=== PATIENT | male | born 1975 | race Caucasian/White ===

== ENCOUNTER 2018-03-10 15:21 | Emergency (ER) | payer SELFPAY ==
[~2018-03-10] VITALS: Ht 175.3 cm; Wt 101.6 kg
[~2018-03-10 15:21] MED LIST: BYSTOLIC10 MG PO; CIPRO500 MG PO; DITROPAN XL5 MG PO; NORVASC5 MG PO; TYLENOL WITH C1 EACH PO
[2018-03-10] MEDS ORDERED: SODIUM CHLORIDE 0.9% 1000ML 1,000 ML IV STA (15:23)
--- OUTSIDE RECORDS SUMMARY | 2018-03-10 15:24 | XMS REPORT | Clinical Summary ---
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 Active Problems Problem Noted Date Flank pain 01/21/2017 Social History Date Tobacco Use Types Packs/Day Years Used Never Smoker Smokeless Tobacco: Never Used Tobacco Cessation: Counseling Given: No Alcohol Use Drinks/Week oz/Week Comments Yes Sex Assigned at Date Recorded Not on file Industry Job Start Date Occupation Not on file Not on file Not on file Travel End Travel History Travel Start No recent travel history available. Last Filed Vital Signs Not on file Plan of Treatment Health Maintenance Due Date Last Done Comments INFLUENZA VACCINE 09/19/2017 Results Not on fileafter 03/09/2017 Insurance Payer Benefit Subscriber ID Type Phone Address Plan / Group BCBS BCBS xxxxxxxxxxxxxxx PPO CHOICE PPO/TOSHA [employer]RAHAM PPO (Home) [place] [address]
--- OUTSIDE RECORDS SUMMARY | 2018-03-10 15:24 | XMS REPORT ---
Author [facility] Address Unknown Phone Unavailable Care Team Providers Care Electrician Assistant Name Role Phone Khushi MACE Unavailable Unavailable GUERO RENEE Unavailable Unavailable Payers Payer Name Policy Type Policy Number Effective Date Expiration Date Problems This patient has no known problems. Allergies, Adverse Reactions, Alerts Allergy Name Allergy Type Status Severity Reaction(s) Onset Date Inactive Date Treating Clinician Comments No Known Allergies DA Active U 2012-02-28 00:00:00 Medications This patient has no known medications. Results Test Description Test Time Test Comments Text Results Atomic Results Result Comments CT ABDOMEN/PELVIS [place] [address] Patient Name: JENISE HERNADEZ MR #: [id number] : 1975 Age/Sex: 41/M Req #: [id number] Adm Physician: Ordered by: SHERI MACE MD Report #: [id number] Location: ER Room/Bed: Procedure: [id number] CT/CT ABDOMEN/PELVIS WO Exam Date: 12/22/16 Exam Time: 1701 REPORT STATUS: Signed PROCEDURE: CT ABDOMEN AND PELVIS WITHOUT CONTRAST COMPARISON: CT abdomen/pelvis 11/17/16. INDICATIONS: RIGHT SIDE FLANK PAIN FOR 3 DAYS TECHNIQUE: Axial CT images through the abdomen and pelvis were obtained without IV or oral contrast. Coronal and sagittal reformations were created. FINDINGS: Lung bases: Noncalcified nodule in the posterior left lower lobe measures 5 mm and is stable. Posterior right lower lobe soft tissue nodule measures 4 mm and is stable. An anterior pericardial effusion measures 8 mm (previously, 5 mm). Liver: Normal attenuation without mass. Spleen: Normal size and attenuation without mass. Biliary: The gallbladder is present and normal in morphology. No biliary ductal dilatation. No evidence of gallstone. Pancreas: Normal attenuation without mass. No d uctal dilatation. Adrenal Glands: No evidence of mass. Kidneys: Right kidney: Stent in the right renal collecting system extends into the bladder. Hydronephrosis has improved. A stone in the lower pole measures 10 mm. Previously, it was in the renal pelvis at the UPJ. No calculus along the course of the stent. No cortical mass. Left kidney: No renal calculus, cortical mass, or perinephric inflammation. No collecting system dilatation. Vasculature: The aorta and IVC are normal in diameter. GI: The stomach, small bowel, and large bowel are normal in diameter with normal wall thickness. The appendix is normal. Peritoneum/Retroperitoneum: No free fluid or fluid collection. Bladder: No mural thickening or intraluminal calculi. Reproductive organs: Normal. Musculoskeletal: No focal osseous lesions. CONCLUSION: 1. 10 mm calculus is now in the lower pole of the right kidney. Right ureteral stent is in appropriate position with resolution of hydronephrosis. 2. No evidence of calculus in the left kidney, ureter, or bladder. 3. No bowel obstruction or inflammation. Normal appendix. 4. Small but enlarging pericardial effusion. 5. Stable pulmonary nodules. Recommend annual surveillance with low dose CT of the chest to confirm stability based on risk factors for malignancy. Dictated by: Basilia Hamilton M.D. on 12/22/2016 at 17:43 Electronically approved by: Basilia Hamilton M.D. on 12/22/2016 at 17:43 Dictated By: BASILIA HAMILTON MD 42 Transcribed By: SANDI on 12/22/161742 COPY TO: SHERI MACE MD ABDOMEN-1VIEW (KUB) [place] [address] Patient Name: JENISE HERNADEZ MR #: [id number] : 1975 Age/Sex: 41/M Req #: [id number] Adm Physician: GUERO RENEE MD Ordered by: RADHA HAN MD Report #: [id number] [facility]: [facility] Room/Bed: [facility] Procedure: [id number] DX/ABDOMEN-1VIEW (KUB) Exam Date: 11/17/16 Exam Time: 1424 REPORT STATUS: Signed PROCEDURE: X-RAY ABDOMEN - KUB COMPARISON: CT abdomen pelvis 11/17/2016. INDICATIONS: KIDNEY STONE FINDINGS: There is a non-obstructed bowel-gas pattern. There are no acute osseous abnormalities. The lung bases are clear. 1.0 cm stone in the right UPJ junction is unchanged. CONCLUSION: 1.0 cm stone in the right UPJ junction is unchanged. Dictated by: Elvira Wilkins M.D. on 11/17/2016 at 14:52 Electronically approved by: Elvira Wilkins M.D. on 11/17/2016 at 14:52 Dictated By: ELVIRA WILKINS MD 51 Transcribed By: SANDI on 11/17/161451 COPY TO: RADHA HAN MD CT ABDOMEN/PELVIS WO [address], [place] [address] Patient Name: JENISE EHRNADEZ MR #: [id number] : 1975 Age/Sex: 41/M [facility] #: [id number] Req #: [id number] Adm Physician: Ordered by: CARRIE FLETCHER MD Report #: [id number] Location: ER Room/Bed: Procedure: [id number] CT/CT ABDOMEN/PELVIS WO Exam Date: 11/17/16 Exam Time: 0040 REPORT STATUS: Signed EXAM: CT Abdomen and Pelvis WITHOUT contrast INDICATION: Right flank pain COMPARISON: None. TECHNIQUE: Abdomen and pelvis were scanned utilizing a multidetector helical scanner from the lung base to the pubic symphysis without administration of IV contrast. Absence of intravenous contrast decreases sensitivity for detection of focal lesions and vascular pathology. Coronal and sagittal reformations were obtained. Stone protocol is performed. IV CONTRAST: None. ORAL CONTRAST: None RADIATION DOSE: Total DLP: 539.94 mGy*cm Estimated effective dose: (DLP x 0.015 x size factor) mSv COMPLICATIONS: None FINDINGS: LINES and TUBES: None. LOWER THORAX: Unremarkable HEPATOBILIARY: No focal hepatic lesions. No biliary ductal dilation. GALLBLADDER: No radio-opaque stones or sludge. No wall thickening. SPLEEN: No splenomegaly. PANCREAS: No focal masses or ductal dilatation. ADRENALS: No adrenal nodules KIDNEYS/URETERS: Mild/moderate right hydronephrosis. No cystic or solid mass lesions. 1 cm stone in the right UPJ best seen on series 401, image 61 and series 3, image 73 GI TRACT: No abnormal distention, wall thickening, or evidence of bowel obstruction. There are diverticula within the colon without evidence of diverticulitis. Appendix is normal. PELVIC ORGANS/BLADDER: Unremarkable. LYMPH NODES: No lymphadenopathy. VESSELS: Unremarkable. PERITONEUM / RETROPERITONEUM: No free air or fluid. BONES: Unremarkable. SOFT TISSUES: Unremarkable. IMPRESSION: 1. Obstructive right ureteropelvic junction stone measuring 1 cm in maximum dimension. 2. Moderate right hydronephrosis. Signed by: Dr. Mayank Blackburn M.D. on 11/17/2016 1:43 AM Dictated By: MAYANK BREAUX MD 2 Transcribed By: PHUC on 11/17/16142 COPY TO: CARRIE FLETCHER MD
[2018-03-10] MEDS ORDERED: DIATRIZOATE MEGL/DIATRIZOA SOD 30 ML BTL PO ONE (15:30)
[2018-03-10 15:44] LABS: BASOPHILS # (AUTO) 0.1 (0.0-0.1); BASOPHILS % 0.7 % (0.0-1.0); EOSINOPHILS # (AUTO) 0.1 (0.0-0.4); EOSINOPHILS % 1.2 % (0.0-6.0); HEMATOCRIT 46.4 % (38.2-49.6); HEMOGLOBIN 16.3 g/dL (14.0-18.0); LYMPHOCYTES % 26.6 % (18.0-39.1); MEAN CORPUSCULAR HGB CONC 35.1 g/dL (31-35); MEAN CORPUSCULAR VOLUME 88.2 fL (81-99); MONOCYTES # (AUTO) 0.5 (0.2-0.8); MONOCYTES % 6.3 % (4.4-11.3); NEUTROPHILS % 64.9 % (38.7-80.0); PLATELET COUNT 257 x10e3/uL (140-360); RED BLOOD COUNT 5.26 x10e6/uL (4.3-5.7); RED CELL DISTRIBUTION WIDTH 12.9 % (11.7-14.4)
[2018-03-10 15:59] LABS: ALANINE AMINOTRANSFERASE 30 IU/L (0-55); ALBUMIN/GLOBULIN RATIO 1.2 (0.8-2.0); ALKALINE PHOSPHATASE 119 IU/L (40-150); ANION GAP 15.9 mmol/L (8-16); BLOOD UREA NITROGEN 20 mg/dL (7-26); BUN/CREATININE RATIO 18 (6-25); CALCIUM 8.8 mg/dL (8.4-10.2); CARBON DIOXIDE 20 mmol/L (22-29); CHLORIDE 103 mmol/L (98-107); CREATININE, SERUM 1.09 mg/dL (0.72-1.25); EST GLOMERULAR FILTRATION RATE > 60 ML/MIN (60-); GLUCOSE 150 mg/dL (74-118); LIPASE 20 U/L (8-78); POTASSIUM 3.9 mmol/L (3.5-5.1); SODIUM 135 mmol/L (136-145)
[2018-03-10] MEDS ORDERED: ONDANSETRON HCL INJ 2 MG/ML VIAL IV ONE (16:00)
[2018-03-10] MEDS ORDERED: MORPHINE SULFATE INJ 4 MG/ML INJ 1ML IV ONE ×2 (16:00→18:30)
--- NOTE | 2018-03-10 17:35 | Diagnostic Imaging Report ---
EXAM: CT of the abdomen and pelvis WITH contrast HISTORY: Pain, r/o hernia sbo divertculitis appy COMPARISON: CT of the abdomen and pelvis December 22, 2016.. TECHNIQUE: The abdomen and pelvis were scanned utilizing a multidetector helical scanner. Coronal and sagittal reformats are provided. PROTOCOL: Routine IV CONTRAST: 100 cc of Isovue-370. ORAL CONTRAST: Dilute Gastrografin RADIATION DOSE: Total DLP: 622.02 mGy*cm Estimated effective dose: (DLP x 0.015 x size factor) Dose modulation, iterative reconstruction, and/or weight based adjustment of the mA/kV was utilized to reduce the radiation dose to as low as reasonably achievable. COMPLICATIONS: None FINDINGS: LINES and TUBES: None. LOWER THORAX: Unremarkable HEPATOBILIARY: No focal hepatic lesions. No biliary ductal dilation. GALLBLADDER: No radio-opaque stones or sludge. No wall thickening. SPLEEN: No splenomegaly. PANCREAS: No focal masses or ductal dilatation. ADRENALS: No adrenal nodules KIDNEYS/URETERS: Resolved hydronephrosis. No cystic or solid mass lesions. A 2 mm nonobstructing stone at the interpolar region of the right kidney. The large stone near the inferior pole is no longer present and there is been interval removal of the right ureteral stent. GI TRACT: No abnormal distention, wall thickening, or evidence of bowel obstruction. There are diverticula within the colon without evidence of diverticulitis. The appendix remains normal. Radiopaque contrast within the distal esophagus. PELVIC ORGANS/BLADDER: The urinary bladder is partially decompressed. LYMPH NODES: No lymphadenopathy. VESSELS: Unremarkable. PERITONEUM / RETROPERITONEUM: No free air or fluid. BONES: Unremarkable. SOFT TISSUES: A small fat-containing ventral midline upper abdominal hernia (series 2 image 41 and sagittal image 75), increased focal fat stranding in comparison to December 2016. Stable appearing small fat-containing umbilical hernia. IMPRESSION: 1. No acute intra-abdominal nor intrapelvic abnormality. 2. No acute appendicitis or acute diverticulitis. 3. Small nonobstructing 2 mm right renal stone. 4. A small ventral midline upper abdominal fat-containing hernia with adjacent inflammatory changes which may reflect mechanical irritation or a component of vascular compromise. Correlate with physical exam if the pain localizes to this region. 5. Stable fat-containing small umbilical hernia. Signed by: Khushi Preston.Jamaal., M.M.M. on 03/10/2018 5:32 PM
[2018-03-10] MEDS ORDERED: SODIUM CHLORIDE 0.9% 50ML 50 ML ONE (18:31)
[2018-03-10] MEDS ORDERED: IOPAMIDOL 370 MG/ML 200 ML INFUS..BTL INJ ONE (18:31)
[2018-03-10 18:51] VITALS: BP 140/88
[2018-03-10 19:02] LABS: BILIRUBIN,URINE NEGATIVE (NEGATIVE); CLARITY,URINE CLEAR (CLEAR); COLOR,URINE YELLOW (YELLOW); KETONES,URINE NEGATIVE (NEGATIVE); LEUKOCYTE ESTERASE ,URINE NEGATIVE (NEGATIVE); NITRITE,URINE NEGATIVE (NEGATIVE); PROTEIN,URINE DIPSTICK NEGATIVE (NEGATIVE); URINE UROBILINOGEN 0.2 mg/dL (0.2 - 1)
[2018-03-10 19:03] LABS: BACTERIA,URINE FEW /HPF; EPITHELIAL CELLS,URINE FEW /LPF
== END 2018-03-10 19:05 | disposition home or self-care (01) ==
LOC: ER 15:21
DX: R10.33 Periumbilical pain (principal); R11.0 Nausea; K43.9 Ventral hernia without obstruction or gangrene; I10 Essential (primary) hypertension
CPT/HCPCS: 36415; 74177; 80053; 81001; 83690; 85025; 87086; 99283; J2270; J2405; J7030; Q9967

== ENCOUNTER → 2023-09-21 | Day surgery (SDC) | payer OTHER ==
[2023-09-17 15:20] LABS: BASOPHILS # (AUTO) 0.1 (0.0-0.1); BASOPHILS % 0.9 % (0.0-1.0); EOSINOPHILS # (AUTO) 0.1 (0.0-0.4); EOSINOPHILS % 1.2 % (0.0-6.0); HEMATOCRIT 48.7 % (38.2-49.6); HEMOGLOBIN 16.6 g/dL (14.0-18.0); LYMPHOCYTES # (AUTO) 2.3 (1.0-3.2); MEAN CORPUSCULAR HEMOGLOBIN 30.6 pg (28-32); MEAN CORPUSCULAR HGB CONC 34.1 g/dL (31-35); MEAN CORPUSCULAR VOLUME 89.9 fL (81-99); MONOCYTES # (AUTO) 0.7 (0.2-0.8); MONOCYTES % 7.6 % (4.4-11.3); NEUTROPHILS # (AUTO) 5.8 (2.1-6.9); NEUTROPHILS % 64.1 % (38.7-80.0); PLATELET COUNT 234 x10e3/uL (140-360); RED BLOOD COUNT 5.42 x10e6/uL (4.3-5.7); RED CELL DISTRIBUTION WIDTH 12.2 % (11.7-14.4); WHITE BLOOD COUNT 8.99 x10e3/uL (4.8-10.8)
[~2023-09-21] MED LIST changes: +ASPIRIN81 MG PO; +ATORVASTATIN CA40 MG PO; +EFFIENT10 MG PO; +HYOSCYAMINE SULFATE 0.5 MG/ML INJ ONE; +PROPOFOL IV EMULSION 10 MG/ML 20 ML VIAL ONE; +PROPOFOL IV EMULSION 50 ML IV ONE; +TOPROL XL25 MG PO
[2023-09-21] MEDS: LACTATED RINGER'S 1,000 ML ONE (12:10)
[2023-09-21] MEDS: METOPROLOL TARTRATE INJ 1 MG/ML VIAL ONE (12:21)
[2023-09-21 15:40] VITALS: BP 121/89; PULSE 89; RESP 16; TEMP 97.4; O2SAT 95
== END | disposition home or self-care (01) ==
LOC: OR 11:23
PROVIDERS: ATTEND Internal Medicine Gastroenterology
DX: K62.5 Hemorrhage of anus and rectum (principal); D12.3 Benign neoplasm of transverse colon; D12.4 Benign neoplasm of descending colon; K57.30 Diverticulosis of large intestine without perforation or abscess without bleeding; K64.8 Other hemorrhoids; Z71.3 Dietary counseling and surveillance; I25.10 Atherosclerotic heart disease of native coronary artery without angina pectoris; I10 Essential (primary) hypertension; Z71.89 Other specified counseling; E78.5 Hyperlipidemia, unspecified; N20.0 Calculus of kidney; F17.220 Nicotine dependence, chewing tobacco, uncomplicated; Z71.6 Tobacco abuse counseling; Z01.810 Encounter for preprocedural cardiovascular examination; Z01.812 Encounter for preprocedural laboratory examination; Z79.82 Long term (current) use of aspirin; Z79.899 Other long term (current) drug therapy; Z68.35 Body mass index [BMI] 35.0-35.9, adult; Z95.5 Presence of coronary angioplasty implant and graft
CPT/HCPCS: 36415; 45380; 45385; 85025; 93005; J1980; J2704 ×2; J7121; 45384

== ENCOUNTER 2023-11-16 01:51 | Observation (INO) | payer OTHER ==
[~2023-11-16] VITALS: Ht 172.7 cm; Wt 104.3 kg
[2023-11-16] VITALS (8 sets, daily range): BP systolic 134–172; BP diastolic 92–115; PULSE 73–86; RESP 18–20; TEMP 97.6–98.4; O2SAT 100
[~2023-11-16 01:51] MED LIST changes: -HYOSCYAMINE SULFATE 0.5 MG/ML INJ ONE; -PROPOFOL IV EMULSION 10 MG/ML 20 ML VIAL ONE; -PROPOFOL IV EMULSION 50 ML IV ONE
[2023-11-16] MEDS: KETOROLAC TROMETHAMINE 30 MG/ML VIAL IV STA (02:10)
[2023-11-16] MEDS: SODIUM CHLORIDE 0.9% 1000ML 1,000 ML IV STA (02:10)
[2023-11-16] MEDS: ONDANSETRON HCL INJ 2MG/ML 2ML 2 MG/ML VIAL IV STA (02:10)
[2023-11-16 02:22] LABS: BASOPHILS % 0.6 % (0.0-1.0); CLARITY,URINE TURBID (CLEAR); COLOR,URINE BROWN (YELLOW); EOSINOPHILS # (AUTO) 0.1 (0.0-0.4); EOSINOPHILS % 1.2 % (0.0-6.0); GLUCOSE, URINE NEGATIVE (NEGATIVE); HEMATOCRIT 39.9 % (38.2-49.6); HEMOGLOBIN 13.4 g/dL (14.0-18.0); KETONES,URINE NEGATIVE (NEGATIVE); LEUKOCYTE ESTERASE ,URINE TRACE (NEGATIVE); LYMPHOCYTES # (AUTO) 1.9 (1.0-3.2); LYMPHOCYTES % 28.6 % (18.0-39.1); MEAN CORPUSCULAR HEMOGLOBIN 30.3 pg (28-32); MEAN CORPUSCULAR HGB CONC 33.6 g/dL (31-35); MEAN CORPUSCULAR VOLUME 90.3 fL (81-99); MONOCYTES # (AUTO) 0.5 (0.2-0.8); MONOCYTES % 7.6 % (4.4-11.3); NEUTROPHILS % 61.2 % (38.7-80.0); NITRITE,URINE NEGATIVE (NEGATIVE); PH,URINE 6 (5 - 7); PLATELET COUNT 181 x10e3/uL (140-360); PROTEIN,URINE DIPSTICK 2+ (NEGATIVE); RED BLOOD COUNT 4.42 x10e6/uL (4.3-5.7); RED CELL DISTRIBUTION WIDTH 12.7 % (11.7-14.4); URINE UROBILINOGEN 0.2 mg/dL (0.2 - 1); WHITE BLOOD COUNT 6.47 x10e3/uL (4.8-10.8)
[2023-11-16 02:23] LABS: BILIRUBIN,URINE SMALL (NEGATIVE)
[2023-11-16 02:36] LABS: ALBUMIN 3.5 g/dL (3.5-5.0); ALBUMIN/GLOBULIN RATIO 1.2 (0.8-2.0); ANION GAP 11.7 mmol/L (8-16); BILIRUBIN,TOTAL 0.5 mg/dL (0.2-1.2); CALCIUM 8.4 mg/dL (8.4-10.2); CREATININE, SERUM 1.53 mg/dL (0.72-1.25); POTASSIUM 3.7 mmol/L (3.5-5.1); TOTAL PROTEIN 6.4 g/dL (6.5-8.1)
[2023-11-16 02:53] LABS: BACTERIA,URINE MANY /HPF; EPITHELIAL CELLS,URINE FEW /LPF; RBC,URINE >50 /HPF (0-5)
[2023-11-16] MEDS: SODIUM CHLORIDE 0.9% 1000ML 1,000 ML IV SCH (03:47)
[2023-11-16] MEDS: Morphine 4mg INJECTION 4 MG/ML INJ IV PRN (06:09)
[2023-11-16] MEDS: ONDANSETRON HCL INJ 2MG/ML 2ML 2 MG/ML VIAL IV PRN (06:09)
[2023-11-16] MEDS: HYDROMORPHONE 1MG/1ML INJ IV ONE (11:39)
[2023-11-16] MEDS ORDERED: IOPAMIDOL 610MG/1ML 300 MG/ML VIAL IV ONE (11:48)
[2023-11-16] MEDS ORDERED: FENTANYL CITRATE/PF 100MCG/2 ML INJ ONE (14:09)
[2023-11-16] MEDS ORDERED: MIDAZOLAM HCL 2 MG/2 ML VIAL ONE (14:09)
[2023-11-16] MEDS ORDERED: PROPOFOL IV EMULSION 10 MG/ML 20 ML VIAL ONE (16:49)
[2023-11-16] MEDS ORDERED: ONDANSETRON HCL INJ 2MG/ML 2ML 2 MG/ML VIAL ONE (16:49)
[2023-11-16] MEDS ORDERED: PHENYLEPHRINE HCL 1% 10 MG/ML VIAL ONE (16:49)
[2023-11-16] MEDS ORDERED: SEVOFLURANE INHAL SOLN 250 ML PEN BTL ONE (16:49)
[2023-11-16] MEDS ORDERED: LIDOCAINE HCL 2% LOCAL INJ 5 ML SDV VIAL INJ ONE (16:49)
[2023-11-16] MEDS ORDERED: ACETAMINOPHEN 1000 MG/100 ML IV ONE (16:49)
[2023-11-16] MEDS ORDERED: DEXMEDETOMIDINE HCL 200 MCG/2 ML VIAL ONE (16:49)
[2023-11-16] MEDS ORDERED: DEXAMETHASONE SOD PHOS INJ 4 MG/ML SDV ONE (16:49)
[2023-11-16] MEDS: ACETAMINOPHEN/CODEINE 300MG - 30MG TAB PO PRN (17:40)
[2023-11-16] MEDS: METOPROLOL SUCCINATE 25 MG TAB XL PO SCH (17:40)
[2023-11-16] MEDS: ATORVASTATIN 40 MG TAB PO SCH (21:38)
[2023-11-17] VITALS: BP 147/97; PULSE 77; RESP 18; TEMP 97.6; O2SAT 97
[2023-11-17 04:00] VITALS: BP 134/83; PULSE 63; RESP 18; TEMP 96.8; O2SAT 98
[2023-11-17 06:06] LABS: BASOPHILS % 0.3 % (0.0-1.0); HEMATOCRIT 37.6 % (38.2-49.6); HEMOGLOBIN 12.4 g/dL (14.0-18.0); LYMPHOCYTES % 15.1 % (18.0-39.1); MEAN CORPUSCULAR HEMOGLOBIN 29.8 pg (28-32); MEAN CORPUSCULAR VOLUME 90.4 fL (81-99); MONOCYTES # (AUTO) 0.4 (0.2-0.8); MONOCYTES % 5.4 % (4.4-11.3); NEUTROPHILS # (AUTO) 5.1 (2.1-6.9); NEUTROPHILS % 78.9 % (38.7-80.0); PLATELET COUNT 191 x10e3/uL (140-360); RED BLOOD COUNT 4.16 x10e6/uL (4.3-5.7); RED CELL DISTRIBUTION WIDTH 12.3 % (11.7-14.4); WHITE BLOOD COUNT 6.47 x10e3/uL (4.8-10.8)
[2023-11-17 06:43] LABS: ALBUMIN 3.1 g/dL (3.5-5.0); ANION GAP 12.2 mmol/L (8-16); BILIRUBIN,TOTAL 0.4 mg/dL (0.2-1.2); CALCIUM 8.7 mg/dL (8.4-10.2); CREATININE, SERUM 1.19 mg/dL (0.72-1.25); POTASSIUM 4.2 mmol/L (3.5-5.1); TOTAL PROTEIN 6.3 g/dL (6.5-8.1)
[2023-11-17 08:00] VITALS: BP 168/100; PULSE 77; RESP 18; TEMP 97.7; O2SAT 98
[2023-11-17] MEDS: ASPIRIN 81 MG CHEW TAB PO SCH (08:28)
[2023-11-17] MEDS: SOLIFENACIN SUCCINATE 5 MG TAB PO SCH (08:28)
[2023-11-17] MEDS: PHENAZOPYRIDINE HCL 100 MG TAB PO PRN (08:33)
[2023-11-17] MEDS ORDERED: METOPROLOL SUCCINATE 25 MG TAB XL PO SCH (09:00)
[2023-11-17 12:00] VITALS: BP 147/88; PULSE 68; RESP 18; TEMP 98; O2SAT 98
[2023-11-17] MEDS: BISACODYL 10 MG SUPP PR STA (12:44)
[2023-11-17 16:00] VITALS: BP 145/78; PULSE 66; RESP 18; TEMP 98.2; O2SAT 98
[2023-11-20 08:15] LABS: CALCIUM 8.3 mg/dL (8.7-10.2)
== END 2023-11-17 16:33 | disposition home or self-care (01) ==
LOC: ER 01:56 → ERHOLD 03:15 → PACU V 13:29 → MED/SURG3 13:50
PROVIDERS: ADMIT Internal Medicine; ATTEND Internal Medicine
DX: N13.2 Hydronephrosis with renal and ureteral calculous obstruction (principal); N17.9 Acute kidney failure, unspecified; I10 Essential (primary) hypertension; I25.10 Atherosclerotic heart disease of native coronary artery without angina pectoris; E78.5 Hyperlipidemia, unspecified; N40.0 Benign prostatic hyperplasia without lower urinary tract symptoms; I31.39 Other pericardial effusion (noninflammatory); Z79.82 Long term (current) use of aspirin; Z79.899 Other long term (current) drug therapy; Z68.35 Body mass index [BMI] 35.0-35.9, adult; Z95.5 Presence of coronary angioplasty implant and graft
CPT/HCPCS: 36415 ×2; 52332; 74176; 74420; 80053 ×2; 81001; 83690; 83970; 84550; 85025 ×2; 99284; C1758; C2617; G0378 ×2; J0131; J0696 ×2; J1100; J1170; J1885; J2001; J2250; J2270; J2371; J2405; J2704; J3010; J7030 ×2; Q9967

== ENCOUNTER 2023-11-28 09:51 | Inpatient (IN) | payer OTHER ==
[~2023-11-28] VITALS: Ht 172.7 cm; Wt 104.3 kg
[2023-11-28 09:59] VITALS: TEMP 98.3
[2023-11-28 10:30] LABS: BASOPHILS # (AUTO) 0.1 (0.0-0.1); BASOPHILS % 0.7 % (0.0-1.0); EOSINOPHILS # (AUTO) 0.1 (0.0-0.4); EOSINOPHILS % 1.6 % (0.0-6.0); HEMATOCRIT 44.6 % (38.2-49.6); HEMOGLOBIN 14.9 g/dL (14.0-18.0); LYMPHOCYTES # (AUTO) 2.5 (1.0-3.2); LYMPHOCYTES % 29.8 % (18.0-39.1); MEAN CORPUSCULAR HEMOGLOBIN 30.3 pg (28-32); MEAN CORPUSCULAR HGB CONC 33.4 g/dL (31-35); MEAN CORPUSCULAR VOLUME 90.8 fL (81-99); MONOCYTES # (AUTO) 0.8 (0.2-0.8); MONOCYTES % 8.8 % (4.4-11.3); NEUTROPHILS % 58.6 % (38.7-80.0); PLATELET COUNT 232 x10e3/uL (140-360); RED BLOOD COUNT 4.91 x10e6/uL (4.3-5.7); RED CELL DISTRIBUTION WIDTH 12.8 % (11.7-14.4); WHITE BLOOD COUNT 8.49 x10e3/uL (4.8-10.8)
[2023-11-28] MEDS: KETOROLAC TROMETHAMINE 30 MG/ML VIAL IV STA (10:34)
[2023-11-28] MEDS: SODIUM CHLORIDE 0.9% 1000ML 1,000 ML IV SCH ×2 (10:37→16:19)
[2023-11-28 10:45] LABS: CLARITY,URINE CLOUDY (CLEAR); COLOR,URINE YELLOW (YELLOW)
[2023-11-28 10:46] LABS: BILIRUBIN,URINE SMALL (NEGATIVE); GLUCOSE, URINE NEGATIVE (NEGATIVE); KETONES,URINE TRACE (NEGATIVE); LEUKOCYTE ESTERASE ,URINE TRACE (NEGATIVE); NITRITE,URINE NEGATIVE (NEGATIVE); PH,URINE 5.5 (5 - 7); PROTEIN,URINE DIPSTICK >=300 (NEGATIVE); URINE UROBILINOGEN 1 mg/dL (0.2 - 1)
[2023-11-28 10:56] LABS: ALBUMIN/GLOBULIN RATIO 1.1 (0.8-2.0); ANION GAP 15.2 mmol/L (8-16); BILIRUBIN,TOTAL 0.7 mg/dL (0.2-1.2); CALCIUM 9.1 mg/dL (8.4-10.2); CREATININE, SERUM 1.09 mg/dL (0.72-1.25); POTASSIUM 4.2 mmol/L (3.5-5.1); TOTAL PROTEIN 7.7 g/dL (6.5-8.1)
[2023-11-28 10:57] LABS: BACTERIA,URINE FEW /HPF; EPITHELIAL CELLS,URINE FEW /LPF; RBC,URINE >50 /HPF (0-5)
[2023-11-28 11:30] VITALS: PULSE 78; RESP 18
[2023-11-28] MEDS ORDERED: SEVOFLURANE INHAL SOLN 250 ML PEN BTL ONE (11:53)
[2023-11-28] MEDS ORDERED: PROPOFOL IV EMULSION 10 MG/ML 20 ML VIAL ONE (11:53)
[2023-11-28] MEDS ORDERED: LIDOCAINE HCL 2% LOCAL INJ 5 ML SDV VIAL INJ ONE (11:53)
[2023-11-28] MEDS ORDERED: ACETAMINOPHEN 1000 MG/100 ML IV ONE (11:53)
[2023-11-28] MEDS ORDERED: CEFTRIAXONE 1 GM VIAL ONE (11:53)
[2023-11-28] MEDS ORDERED: DEXAMETHASONE SOD PHOS INJ 4 MG/ML SDV ONE (11:53)
[2023-11-28] MEDS ORDERED: SODIUM CHLORIDE 0.9% INJ 100 ML BAG ONE (11:53)
[2023-11-28] MEDS ORDERED: DEXMEDETOMIDINE HCL 200 MCG/2 ML VIAL ONE (11:53)
[2023-11-28] MEDS ORDERED: ONDANSETRON HCL INJ 2MG/ML 2ML 2 MG/ML VIAL ONE (11:53)
[2023-11-28] MEDS: Morphine 4mg INJECTION 4 MG/ML INJ IV PRN (12:34)
[2023-11-28 14:20] VITALS: PULSE 74; RESP 20; O2SAT 96
[2023-11-28] MEDS ORDERED: ACETAMINOPHEN/CODEINE 300MG - 30MG TAB PO PRN (15:15)
[2023-11-28] MEDS ORDERED: KETOROLAC TROMETHAMINE 30 MG/ML VIAL IV PRN (15:30)
[2023-11-28] MEDS: HYDROMORPHONE 1MG/1ML INJ IV PRN (16:18)
[2023-11-28 19:39] VITALS: PULSE 80; RESP 20; O2SAT 98
[2023-11-28 20:00] VITALS: BP 141/101; PULSE 90; RESP 18; TEMP 98.4; O2SAT 98
[2023-11-28 21:00] VITALS: BP 126/72; PULSE 90; RESP 18; TEMP 98.4; O2SAT 98
[2023-11-29 00:36] VITALS: BP 127/90; PULSE 81; RESP 18; TEMP 98.1; O2SAT 99
[2023-11-29 06:14] LABS: BASOPHILS # (AUTO) 0.1 (0.0-0.1); BASOPHILS % 0.9 % (0.0-1.0); EOSINOPHILS # (AUTO) 0.2 (0.0-0.4); EOSINOPHILS % 3.2 % (0.0-6.0); HEMATOCRIT 38.9 % (38.2-49.6); HEMOGLOBIN 12.6 g/dL (14.0-18.0); LYMPHOCYTES # (AUTO) 2.1 (1.0-3.2); LYMPHOCYTES % 37.2 % (18.0-39.1); MEAN CORPUSCULAR HEMOGLOBIN 29.9 pg (28-32); MEAN CORPUSCULAR HGB CONC 32.4 g/dL (31-35); MEAN CORPUSCULAR VOLUME 92.4 fL (81-99); MONOCYTES # (AUTO) 0.5 (0.2-0.8); MONOCYTES % 8.5 % (4.4-11.3); NEUTROPHILS # (AUTO) 2.8 (2.1-6.9); NEUTROPHILS % 49.5 % (38.7-80.0); PLATELET COUNT 179 x10e3/uL (140-360); RED BLOOD COUNT 4.21 x10e6/uL (4.3-5.7); RED CELL DISTRIBUTION WIDTH 12.7 % (11.7-14.4); WHITE BLOOD COUNT 5.56 x10e3/uL (4.8-10.8)
[2023-11-29 06:37] LABS: ANION GAP 11.8 mmol/L (8-16); CALCIUM 8.4 mg/dL (8.4-10.2); CREATININE, SERUM 0.98 mg/dL (0.72-1.25); POTASSIUM 3.8 mmol/L (3.5-5.1)
[2023-11-29 07:47] VITALS: BP 141/85; PULSE 70; RESP 16; TEMP 97.6; O2SAT 100
[2023-11-29] MEDS ORDERED: IOPAMIDOL 610MG/1ML 300 MG/ML VIAL IV ONE (08:03)
[2023-11-29] MEDS: KETOROLAC TROMETHAMINE 30 MG/ML VIAL IV PRN (08:09)
[2023-11-29 09:07] VITALS: BP 141/85; PULSE 70; RESP 16; TEMP 97.6; O2SAT 100
[2023-11-29] MEDS: FENTANYL CITRATE/PF 100MCG/2 ML INJ ONE (11:33)
[2023-11-29] MEDS ORDERED: FENTANYL CITRATE/PF 100MCG/2 ML INJ ONE (11:36)
[2023-11-29] MEDS ORDERED: MIDAZOLAM HCL 2 MG/2 ML VIAL ONE (11:36)
[2023-11-29] MEDS: PHENAZOPYRIDINE HCL 100 MG TAB ONE (11:52)
[2023-11-29 15:34] VITALS: BP 135/95; PULSE 78; RESP 18; TEMP 97.5; O2SAT 98
[2023-11-29 20:00] VITALS: BP 154/95; PULSE 99; RESP 20; TEMP 98.7; O2SAT 99
[2023-11-29] MEDS: PHENAZOPYRIDINE HCL 100 MG TAB PO PRN (20:39)
[2023-11-30] VITALS: BP 150/98; PULSE 86; RESP 18; TEMP 98.3; O2SAT 97
[2023-11-30 04:00] VITALS: BP 110/73; PULSE 67; RESP 20; TEMP 97.8; O2SAT 100
[2023-11-30 06:06] LABS: BASOPHILS % 0.2 % (0.0-1.0); EOSINOPHILS % 0.1 % (0.0-6.0); HEMATOCRIT 41.4 % (38.2-49.6); HEMOGLOBIN 13.3 g/dL (14.0-18.0); LYMPHOCYTES # (AUTO) 1.4 (1.0-3.2); LYMPHOCYTES % 14.5 % (18.0-39.1); MEAN CORPUSCULAR HEMOGLOBIN 29.6 pg (28-32); MEAN CORPUSCULAR HGB CONC 32.1 g/dL (31-35); MONOCYTES # (AUTO) 0.4 (0.2-0.8); MONOCYTES % 4.1 % (4.4-11.3); NEUTROPHILS # (AUTO) 7.9 (2.1-6.9); NEUTROPHILS % 80.4 % (38.7-80.0); PLATELET COUNT 226 x10e3/uL (140-360); RED CELL DISTRIBUTION WIDTH 12.1 % (11.7-14.4); WHITE BLOOD COUNT 9.81 x10e3/uL (4.8-10.8)
[2023-11-30 06:33] LABS: ANION GAP 14.1 mmol/L (8-16); CALCIUM 8.6 mg/dL (8.4-10.2); CREATININE, SERUM 0.93 mg/dL (0.72-1.25); POTASSIUM 4.1 mmol/L (3.5-5.1)
[2023-11-30 07:43] VITALS: BP 149/99; PULSE 63; RESP 18; TEMP 97.7; O2SAT 99
[2023-11-30 08:52] VITALS: BP 149/99; PULSE 63; RESP 18; TEMP 97.7; O2SAT 99
[2023-11-30] MEDS: SOLIFENACIN SUCCINATE 5 MG TAB PO SCH (09:18)
[2023-11-30] MEDS: PREGABALIN 50 MG CAP PO SCH (09:19)
[2023-11-30] MEDS: PHENAZOPYRIDINE HCL 100 MG TAB PO SCH (09:19)
[2023-11-30] MEDS: CIPROFLOXACIN 500 MG TAB PO SCH (09:19)
[2023-11-30 11:28] VITALS: BP 144/86; PULSE 84; RESP 18; TEMP 97.6; O2SAT 98
[2023-11-30 16:00] VITALS: BP 137/87; PULSE 78; RESP 22; TEMP 97.7; O2SAT 99
== END 2023-11-30 16:19 | disposition home or self-care (01) | DRG 661 ==
LOC: ER 10:27 → ERHOLD 11:55 → INTOOBSV 11:55 → MED/SURG3 13:10 → OBSVTOIN 11-30 13:39
PROVIDERS: ADMIT Internal Medicine; ATTEND Internal Medicine
PROC: 0T788DZ Dilation of Bilateral Ureters with Intraluminal Device, Via Natural or Artificial Opening Endoscopic (ICD-10-PCS; principal; 2023-11-30)
PROC: 0TP98DZ Removal of Intraluminal Device from Ureter, Via Natural or Artificial Opening Endoscopic (ICD-10-PCS; 2023-11-30)
PROC: 0TF78ZZ Fragmentation in Left Ureter, Via Natural or Artificial Opening Endoscopic (ICD-10-PCS; 2023-11-30)
PROC: 0TP98DZ Removal of Intraluminal Device from Ureter, Via Natural or Artificial Opening Endoscopic (ICD-10-PCS; 2023-11-30)
PROC: 0TF38ZZ Fragmentation in Right Kidney Pelvis, Via Natural or Artificial Opening Endoscopic (ICD-10-PCS; 2023-11-30)
PROC: BT141ZZ Fluoroscopy of Kidneys, Ureters and Bladder using Low Osmolar Contrast (ICD-10-PCS; 2023-11-30)
DX: T83.84XA Pain due to genitourinary prosthetic devices, implants and grafts, initial encounter (principal); N20.0 Calculus of kidney; Z96.0 Presence of urogenital implants; Y83.1 Surgical operation with implant of artificial internal device as the cause of abnormal reaction of the patient, or of later complication, without mention of misadventure at the time of the procedure; E66.9 Obesity, unspecified; Z68.35 Body mass index [BMI] 35.0-35.9, adult; N23 Unspecified renal colic; R31.9 Hematuria, unspecified
CPT/HCPCS: 36415; 74018; 74176; 74420; 80048; 80053; 81001; 85025; 87086; 88300; 93005; 94799; 99283; C1766; C1769; C2617; G0378; J0696; J1100; J1171; J1885; J2003; J2250; J2270; J2405; J7030; J7050

== ENCOUNTER 2023-12-11 22:33 | Inpatient (IN) | payer OTHER ==
[~2023-12-11] VITALS: Ht 175.3 cm; Wt 108.9 kg
[2023-12-11] MEDS: ONDANSETRON HCL INJ 2MG/ML 2ML 2 MG/ML VIAL IV STA (23:00)
[2023-12-11] MEDS: SODIUM CHLORIDE 0.9% 1000ML 1,000 ML IV STA (23:00)
[2023-12-11] MEDS: KETOROLAC TROMETHAMINE 30 MG/ML VIAL IV STA (23:00)
[2023-12-11 23:02] LABS: BILIRUBIN,URINE 1+ (NEGATIVE); CLARITY,URINE CLOUDY (CLEAR); COLOR,URINE AMBER (YELLOW); GLUCOSE, URINE 1+ (NEGATIVE); KETONES,URINE NEGATIVE (NEGATIVE); LEUKOCYTE ESTERASE ,URINE TRACE (NEGATIVE); NITRITE,URINE POSITIVE (NEGATIVE); PH,URINE 5.5 (5 - 7); PROTEIN,URINE DIPSTICK >=300 (NEGATIVE); URINE UROBILINOGEN 1 mg/dL (0.2 - 1)
[2023-12-11 23:07] LABS: BASOPHILS # (AUTO) 0.1 (0.0-0.1); BASOPHILS % 0.7 % (0.0-1.0); EOSINOPHILS # (AUTO) 0.2 (0.0-0.4); EOSINOPHILS % 2.4 % (0.0-6.0); HEMOGLOBIN 13.9 g/dL (14.0-18.0); LYMPHOCYTES # (AUTO) 2.3 (1.0-3.2); LYMPHOCYTES % 34.3 % (18.0-39.1); MEAN CORPUSCULAR HEMOGLOBIN 30.3 pg (28-32); MEAN CORPUSCULAR HGB CONC 33.1 g/dL (31-35); MEAN CORPUSCULAR VOLUME 91.7 fL (81-99); MONOCYTES # (AUTO) 0.5 (0.2-0.8); MONOCYTES % 7.2 % (4.4-11.3); NEUTROPHILS # (AUTO) 3.7 (2.1-6.9); PLATELET COUNT 204 x10e3/uL (140-360); RED BLOOD COUNT 4.58 x10e6/uL (4.3-5.7); RED CELL DISTRIBUTION WIDTH 13.6 % (11.7-14.4); WHITE BLOOD COUNT 6.68 x10e3/uL (4.8-10.8)
[2023-12-11 23:10] LABS: BACTERIA,URINE MANY /HPF; EPITHELIAL CELLS,URINE FEW /LPF; RBC,URINE >50 /HPF (0-5)
[2023-12-11 23:22] LABS: ALBUMIN 3.8 g/dL (3.5-5.0); ALBUMIN/GLOBULIN RATIO 1.2 (0.8-2.0); ANION GAP 13.9 mmol/L (8-16); BILIRUBIN,TOTAL 0.6 mg/dL (0.2-1.2); CALCIUM 8.7 mg/dL (8.4-10.2); CREATININE, SERUM 0.99 mg/dL (0.72-1.25); POTASSIUM 3.9 mmol/L (3.5-5.1)
[2023-12-12] VITALS (10 sets, daily range): BP systolic 111–145; BP diastolic 69–93; PULSE 60–80; RESP 18–21; TEMP 97.5–99.6; O2SAT 97–100
[2023-12-12] MEDS: Morphine 4mg INJECTION 4 MG/ML INJ IV STA (01:40)
[2023-12-12] MEDS: SODIUM CHLORIDE 0.9% 1000ML 1,000 ML IV SCH (03:00)
[2023-12-12] MEDS ORDERED: PYRIDIUM100 MG PO (03:23)
[2023-12-12] MEDS: Morphine 4mg INJECTION 4 MG/ML INJ IV PRN (05:53)
[2023-12-12] MEDS ORDERED: ACETAMINOPHEN 325 MG TAB PO PRN (08:45)
[2023-12-12] MEDS ORDERED: IOPAMIDOL 610MG/1ML 300 MG/ML VIAL IV ONE (13:09)
[2023-12-12] MEDS: HYDROCODONE/APAP 10MG-325MG TAB PO PRN (15:01)
[2023-12-12] MEDS: ONDANSETRON HCL INJ 2MG/ML 2ML 2 MG/ML VIAL IV PRN (15:48)
[2023-12-12] MEDS: KETOROLAC TROMETHAMINE 30 MG/ML VIAL IV PRN (15:48)
[2023-12-12] MEDS: ACETAMINOPHEN 1000 MG/100 ML IV PRN (16:16)
[2023-12-12] MEDS: HYDROMORPHONE 1MG/1ML INJ IV PRN (16:16)
[2023-12-12] MEDS: PHENAZOPYRIDINE HCL 100 MG TAB PO PRN (17:24)
[2023-12-13] VITALS (7 sets, daily range): BP systolic 125–134; BP diastolic 76–97; PULSE 67–77; RESP 18–22; TEMP 97.6–98.6; O2SAT 98–100
[2023-12-13 05:08] LABS: BASOPHILS % 0.4 % (0.0-1.0); EOSINOPHILS # (AUTO) 0.2 (0.0-0.4); EOSINOPHILS % 3.2 % (0.0-6.0); HEMATOCRIT 37.2 % (38.2-49.6); HEMOGLOBIN 11.9 g/dL (14.0-18.0); LYMPHOCYTES # (AUTO) 2.1 (1.0-3.2); LYMPHOCYTES % 41.1 % (18.0-39.1); MEAN CORPUSCULAR HEMOGLOBIN 30.4 pg (28-32); MEAN CORPUSCULAR VOLUME 94.9 fL (81-99); MONOCYTES # (AUTO) 0.4 (0.2-0.8); MONOCYTES % 7.7 % (4.4-11.3); NEUTROPHILS # (AUTO) 2.4 (2.1-6.9); NEUTROPHILS % 47.2 % (38.7-80.0); PLATELET COUNT 147 x10e3/uL (140-360); RED BLOOD COUNT 3.92 x10e6/uL (4.3-5.7); RED CELL DISTRIBUTION WIDTH 13.5 % (11.7-14.4); WHITE BLOOD COUNT 5.04 x10e3/uL (4.8-10.8)
[2023-12-13 05:30] LABS: ALBUMIN 3.1 g/dL (3.5-5.0); ALBUMIN/GLOBULIN RATIO 1.2 (0.8-2.0); ANION GAP 11.2 mmol/L (8-16); BILIRUBIN,TOTAL 0.5 mg/dL (0.2-1.2); CALCIUM 8.3 mg/dL (8.4-10.2); CREATININE, SERUM 1.14 mg/dL (0.72-1.25); POTASSIUM 4.2 mmol/L (3.5-5.1); TOTAL PROTEIN 5.7 g/dL (6.5-8.1)
[2023-12-13] MEDS: KETOROLAC TROMETHAMINE 30 MG/ML VIAL IV PRN (06:37)
[2023-12-13] MEDS ORDERED: DIPHENHYDRAMINE HCL 25 MG CAP PO PRN (08:45)
[2023-12-13] MEDS ORDERED: KETOROLAC TROMETHAMINE 30 MG/ML VIAL IV PRN (08:45)
[2023-12-13] MEDS ORDERED: ACETAMINOPHEN 325 MG TAB PO PRN (08:45)
[2023-12-13] MEDS: CELECOXIB 200 MG CAP PO SCH (09:47)
[2023-12-13] MEDS: TAMSULOSIN HCL 0.4 MG CAP PO ONE (09:47)
[2023-12-13] MEDS: PREGABALIN 50 MG CAP PO SCH (09:47)
[2023-12-13] MEDS: LORATADINE 10 MG TAB PO SCH (09:47)
[2023-12-13] MEDS: SOLIFENACIN SUCCINATE 5 MG TAB PO SCH (09:47)
[2023-12-13] MEDS ORDERED: ONDANSETRON HCL 4 MG ORAL DISINTEGRATING TAB PO PRN (19:00)
[2023-12-13] MEDS ORDERED: TAMSULOSIN HCL 0.4 MG CAP PO SCH (21:00)
== END 2023-12-13 18:09 | disposition home or self-care (01) | DRG 699 ==
LOC: ER 22:43 → ERHOLD 12-12 01:32 → MED/SURG 12-12 02:20
PROVIDERS: ADMIT Internal Medicine; ATTEND Internal Medicine
PROC: 0TP98DZ Removal of Intraluminal Device from Ureter, Via Natural or Artificial Opening Endoscopic (ICD-10-PCS; 2023-12-12)
PROC: BT161ZZ Fluoroscopy of Right Ureter using Low Osmolar Contrast (ICD-10-PCS; 2023-12-12)
PROC: BT171ZZ Fluoroscopy of Left Ureter using Low Osmolar Contrast (ICD-10-PCS; 2023-12-12)
PROC: 0T7D8ZZ Dilation of Urethra, Via Natural or Artificial Opening Endoscopic (ICD-10-PCS; principal; 2023-12-12 13:00)
PROC: 0TP98DZ Removal of Intraluminal Device from Ureter, Via Natural or Artificial Opening Endoscopic (ICD-10-PCS; 2023-12-12 13:00)
DX: T83.84XA Pain due to genitourinary prosthetic devices, implants and grafts, initial encounter (principal); N20.2 Calculus of kidney with calculus of ureter; N39.0 Urinary tract infection, site not specified; N35.912 Unspecified bulbous urethral stricture, male; N40.0 Benign prostatic hyperplasia without lower urinary tract symptoms; I10 Essential (primary) hypertension; I25.10 Atherosclerotic heart disease of native coronary artery without angina pectoris; E78.5 Hyperlipidemia, unspecified; R30.0 Dysuria; R31.9 Hematuria, unspecified; N23 Unspecified renal colic; E66.9 Obesity, unspecified; Z68.35 Body mass index [BMI] 35.0-35.9, adult; Z79.82 Long term (current) use of aspirin; Z96.0 Presence of urogenital implants; Y83.1 Surgical operation with implant of artificial internal device as the cause of abnormal reaction of the patient, or of later complication, without mention of misadventure at the time of the procedure
CPT/HCPCS: 36415; 74018; 74176; 74420; 80053; 81001; 81025; 83690; 85025; 87086; 99252; 99284; C1769; J1171; J1885; J2270; J2405; J2543; J7030

== ENCOUNTER 2024-01-22 12:54 | Emergency (ER) | payer OTHER ==
[~2024-01-22] VITALS: Ht 175.3 cm; Wt 108.9 kg
[~2024-01-22 12:54] MED LIST changes: +PYRIDIUM100 MG PO
[2024-01-22 13:01] VITALS: TEMP 98.5
[2024-01-22 13:41] LABS: BASOPHILS # (AUTO) 0.1 (0.0-0.1); BASOPHILS % 0.8 % (0.0-1.0); EOSINOPHILS # (AUTO) 0.1 (0.0-0.4); EOSINOPHILS % 0.6 % (0.0-6.0); HEMATOCRIT 42.7 % (38.2-49.6); HEMOGLOBIN 14.2 g/dL (14.0-18.0); LYMPHOCYTES # (AUTO) 2.3 (1.0-3.2); LYMPHOCYTES % 28.6 % (18.0-39.1); MEAN CORPUSCULAR HEMOGLOBIN 30.6 pg (28-32); MEAN CORPUSCULAR HGB CONC 33.3 g/dL (31-35); MONOCYTES # (AUTO) 0.4 (0.2-0.8); MONOCYTES % 5.2 % (4.4-11.3); NEUTROPHILS # (AUTO) 5.1 (2.1-6.9); NEUTROPHILS % 64.3 % (38.7-80.0); PLATELET COUNT 233 x10e3/uL (140-360); RED BLOOD COUNT 4.64 x10e6/uL (4.3-5.7); RED CELL DISTRIBUTION WIDTH 12.8 % (11.7-14.4); WHITE BLOOD COUNT 7.93 x10e3/uL (4.8-10.8)
[2024-01-22] MEDS: ONDANSETRON HCL INJ 2MG/ML 2ML 2 MG/ML VIAL IV STA (13:48)
[2024-01-22] MEDS: SODIUM CHLORIDE 0.9% 1000ML 1,000 ML IV STA (13:49)
[2024-01-22 13:57] LABS: INR 0.9; PROTHROMBIN TIME 12.7 seconds (11.9-14.5)
[2024-01-22 14:09] LABS: ALBUMIN/GLOBULIN RATIO 1.1 (0.8-2.0); ANION GAP 14.8 mmol/L (8-16); BILIRUBIN,TOTAL 0.6 mg/dL (0.2-1.2); CALCIUM 9.2 mg/dL (8.4-10.2); CREATININE, SERUM 1.14 mg/dL (0.72-1.25); MAGNESIUM 2.1 MG/DL (1.3-2.1); POTASSIUM 3.8 mmol/L (3.5-5.1); TOTAL PROTEIN 7.5 g/dL (6.5-8.1)
[2024-01-22 14:10] LABS: CORONAVIRUS COVID-19 AG NEGATIVE (NEGATIVE); INFLUENZA A AG NEGATIVE (NEGATIVE); INFLUENZA B AG NEGATIVE (NEGATIVE)
[2024-01-22 14:15] LABS: TROPONIN I 0.002 ng/mL (0-0.300)
[2024-01-22] MEDS ORDERED: IOPAMIDOL 370 MG/ML 100 ML INFUS..BTL INJ ONE (14:26)
[2024-01-22] MEDS ORDERED: SODIUM CHLORIDE 0.9% 100 ML ONE (14:32)
[2024-01-22 15:18] LABS: BILIRUBIN,URINE NEGATIVE (NEGATIVE); CLARITY,URINE CLEAR (CLEAR); COLOR,URINE YELLOW (YELLOW); GLUCOSE, URINE NEGATIVE (NEGATIVE); KETONES,URINE NEGATIVE (NEGATIVE); LEUKOCYTE ESTERASE ,URINE NEGATIVE (NEGATIVE); NITRITE,URINE NEGATIVE (NEGATIVE); PH,URINE 5 (5 - 7); PROTEIN,URINE DIPSTICK NEGATIVE (NEGATIVE); URINE UROBILINOGEN 0.2 mg/dL (0.2 - 1)
[2024-01-22] MEDS ORDERED: ANUSOL-HC25 MG RC (16:32)
[2024-01-22 17:03] VITALS: PULSE 95; RESP 15; O2SAT 100
== END 2024-01-22 17:06 | disposition home or self-care (01) ==
LOC: ER 13:06
DX: K92.2 Gastrointestinal hemorrhage, unspecified (principal); K64.9 Unspecified hemorrhoids; K43.9 Ventral hernia without obstruction or gangrene; K42.9 Umbilical hernia without obstruction or gangrene; I10 Essential (primary) hypertension; I25.10 Atherosclerotic heart disease of native coronary artery without angina pectoris; E78.5 Hyperlipidemia, unspecified; Z87.442 Personal history of urinary calculi
CPT/HCPCS: 36415; 71045; 74174; 80053; 81001; 82550; 83690; 83735; 83880; 84484; 85025; 85610; 85730; 86850; 86900; 87040; 87086; 87428; 93005; 99284; J2405; J2470; J7030; J7050; Q9967